=== PATIENT | male | born 1985 | race Caucasian/White ===

== ENCOUNTER 2017-12-12 11:01 | Emergency (ER) | payer OTHER ==
[~2017-12-12] VITALS: Ht 134.6 cm; Wt 44.0 kg
[~2017-12-12 11:01] MED LIST: CONZIP100 MG; MOTRIN800 MG PO; PERCOCET 5/321 UDTAB
== END 2017-12-12 14:28 | disposition home or self-care (01) ==
LOC: ER 11:01
DX: E16.1 Other hypoglycemia (principal)

== ENCOUNTER 2019-04-02 11:40 | Emergency (ER) | payer OTHER ==
[~2019-04-02] VITALS: Ht 134.6 cm; Wt 47.6 kg
== END 2019-04-02 15:00 | disposition home or self-care (01) ==
LOC: ER 11:40
DX: M25.562 Pain in left knee (principal)

== ENCOUNTER 2020-08-31 17:49 | Emergency (ER) | payer OTHER ==
[~2020-08-31] VITALS: Ht 134.6 cm; Wt 48.5 kg
[2020-08-31] MEDS ORDERED: KETO10TA2 PO (20:12)
[2020-08-31] MEDS ORDERED: ORPHENADRINE C100 MG PO (20:12)
== END 2020-08-31 21:13 | disposition home or self-care (01) ==
LOC: ER 17:49
DX: M25.562 Pain in left knee (principal); Q78.0 Osteogenesis imperfecta

== ENCOUNTER 2020-09-08 21:28 | Emergency (ER) | payer OTHER ==
[~2020-09-08] VITALS: Ht 134.6 cm; Wt 48.5 kg
[~2020-09-08 21:28] MED LIST changes: +KETO10TA2 PO; +ORPHENADRINE C100 MG PO
[2020-09-08] MEDS ORDERED: PERCOCET 10-321 EACH PO (21:56)
== END 2020-09-09 01:35 | disposition home or self-care (01) ==
LOC: ER 21:28
DX: N39.0 Urinary tract infection, site not specified (principal); N20.0 Calculus of kidney

== ENCOUNTER 2022-04-15 20:11 | Emergency (ER) | payer OTHER ==
[~2022-04-15] VITALS: Ht 134.6 cm; Wt 49.9 kg
[~2022-04-15 20:11] MED LIST changes: +PERCOCET 10-321 EACH PO
== END 2022-04-15 22:23 | disposition home or self-care (01) ==
LOC: ER 20:11
DX: M25.562 Pain in left knee (principal)

== ENCOUNTER 2022-05-13 08:42 | Emergency (ER) | payer OTHER ==
[~2022-05-13] VITALS: Ht 134.6 cm; Wt 49.9 kg
[2022-05-13] MEDS ORDERED: NORFLEX100MG PO (14:19)
[2022-05-13] MEDS ORDERED: KETO10TA2 PO (14:19)
== END 2022-05-13 14:28 | disposition home or self-care (01) ==
LOC: ER 08:42
DX: M25.562 Pain in left knee (principal); Q78.0 Osteogenesis imperfecta

== ENCOUNTER 2022-07-22 13:53 | Emergency (ER) | payer OTHER ==
[~2022-07-22] VITALS: Ht 134.6 cm; Wt 50.8 kg
[~2022-07-22 13:53] MED LIST changes: +NORFLEX100MG PO
[2022-07-22] MEDS ORDERED: KETO10TA2 PO (16:12)
[2022-07-22] MEDS ORDERED: NORFLEX100MG PO (16:12)
== END 2022-07-22 16:18 | disposition home or self-care (01) ==
LOC: ER 13:53
DX: M25.562 Pain in left knee (principal); Z98.890 Other specified postprocedural states; Q78.0 Osteogenesis imperfecta